=== PATIENT | female | born 1950 | race Caucasian/White ===

== ENCOUNTER → 2018-07-20 | Outpatient (CLI) | payer BC ==
--- NOTE | 2018-07-20 17:15 | Diagnostic Imaging Report ---
INDICATION: Right knee pain. AP, oblique, and lateral views of the right knee are obtained. There is mild medial and lateral osteophyte formation with mild medial joint space narrowing. There is patellofemoral spurring and joint space narrowing. There is no acute fracture or acute bony abnormality seen. IMPRESSION: Findings in the right knee as described above with no acute-appearing bony abnormality. Dictated by: Dictated on workstation # [id number]
== END ==
LOC: RAD 16:22
PROVIDERS: ATTEND Nurse Practitioner Family
DX: M25.761 Osteophyte, right knee (principal); M17.11 Unilateral primary osteoarthritis, right knee
CPT/HCPCS: 73562

== ENCOUNTER 2018-12-28 14:46 | Emergency (ER) | payer BC ==
[~2018-12-28] VITALS: Ht 170.2 cm; Wt 95.3 kg
--- OUTSIDE RECORDS SUMMARY | 2018-12-28 14:51 | XMS REPORT | Referral Summary ---
Author Author [facility] Organization [facility] Address Unknown Phone Unavailable Encounter [facility] [id number] Date(s): 07/12/16 - 07/12/16 [facility] [address] [place], [place] [address] Discharge Diagnosis: FH: malignant neoplasm of breast Discharge Diagnosis: HX: breast cancer Discharge Disposition: 01-Home or Self Care Attending Physician: Ruth Hayden MD Admitting Physician: Ruth Hayden MD Vital Signs No data available for this section Problem List Condition Effective Dates Status Health Status Informant Appendectomy(Confirm Resolved ed) Arthritis-Osteo(Conf Active [facility]med) Depression(Confirmed Active )1 Encounter for Active orthopedic follow-up care(Confirmed) L breast Resolved mastectomy(Confirmed ) L total knee 05/14/13 Resolved arthroplasty(Confirm ed) Obesity(Confirmed) Active patient ORIF clavicle Resolved fx(Confirmed) R breast Resolved biopsy(Confirmed) 1DEPRESSIVE DISORDER, NOT ELSEWHERE CLASSIFIED Allergies, Adverse Reactions, Alerts No Known Medication Allergies Medications Cindy Oral, 0 Refill(s) Start Date: 03/05/14 Status: Ordered anastrozole mg, Oral, Daily, 0 Refill(s) Start Date: 03/05/14 Status: Ordered Calcium 600+D tabs, Oral, TID, 0 Refill(s) Start Date: 03/05/14 Status: Ordered Centrum Silver Daily, 0 Refill(s) Start Date: 03/06/14 Status: Ordered cranberry 0 Refill(s) Start Date: 03/05/14 Status: Ordered Vitamin D3 Oral, 0 Refill(s) Start Date: 03/05/14 Status: Ordered Results No data available for this section Immunizations Vaccine Date Refusal Reason tetanus/diphth/pertuss (Tdap) adult/adol 12/30/08 Procedures Procedure Date Related Diagnosis Body Site L total knee arthroplasty 2012 LFT NEEDLE LOC BRST BX 02/25/12 ORIF Clavicle fx1 2005 R breast biopsy2 2004 Appendectomy Mastectomy Left 1pins, screws, wires 2benign Social History Social History Type Response Smoking Status Never smoker Assessment and Plan Extracted from: Title: BREAST CLINIC NOTE Author: Ruth Hayedn MD Date: 07/12/16 Assessment/Plan 1.HX: breast cancer 1. The patient is a 66-year-old woman who underwent a left mastectomy in 2011 for breast cancer. She is doing well and at this time there is no sign of recurrence or new cancer based on imaging or examination. 2. The patient does have excess tissue in her left axilla. This does bother her slightly. We did discuss potential excision which could be doneas an outpatient. The patient will think about it and let me know if she would like to proceed. 3.The patient and I did discuss herfamily history and previous genetic testing in detail. She has had BRCA testing. I explained that thereis new testing availablefor additional genes other than the BRCA gene. She is certainly at risk for these additional genetic abnormalitiessecondary to her strong family history. I would recommend that she obtain additional informationfrom our genetic counseling serviceat [facility]. A pamphlet was given to heralong withthe phone number to call and make an appointment if she is interested. 4. The patient will see me back in the officein one year after her right mammogram. Ordered: Office Visit Level 4 Est 52378 2.FH: malignant neoplasm of breast Ordered: Office Visit Level 4 Est 43417
--- OUTSIDE RECORDS SUMMARY | 2018-12-28 14:51 | XMS REPORT | Referral Summary ---
Author Author [facility] Organization [facility] Address Unknown Phone Unavailable Care Team Providers Care Collar Tailor Name Role Phone Jigna Hodge PCP Encounter [facility] [id number] Date(s): 06/02/15 - 06/02/15 [facility] [address] [place], [place] [address] Discharge Diagnosis: Personal history of breast cancer Discharge Diagnosis: Abnormal mammogram Discharge Disposition: 01-Home or Self Care Attending [...] Vitamin D3 Oral, 0 Refill(s) Start Date: 7/22/14 Status: Ordered Results No data available for this section Immunizations Vaccine Date Refusal Reason tetanus/diphth/pertuss (Tdap) adult/adol 08/13/08 Procedures Procedure Date Related Diagnosis Body Site L total knee arthroplasty 2012 LFT NEEDLE LOC BRST BX 02/25/12 ORIF Clavicle fx1 2006 R breast biopsy2 2004 Appendectomy Mastectomy Left 1pins, screws, wires 2benign Social History Social History Type Response Smoking Status Never smoker Assessment and Plan Extracted from: Title: Ambulatory Patient Education Author: Ruth Hayden MD Date: [facility] Breast Cancer Survivor Follow-up Breast cancer treatment aims to get rid of all cancer cells, but sometimes a few remain in the body. These cells can then grow and cause the cancer to return (recur). If this happens, the goal is to find the cancer as soon as possible. Cancer can recur just a few months after treatment or years later. Most cases of recurrent breast cancer develop 3 5 years after treatment. WILL MY CANCER RETURN? There is no way to know if your breast cancer will return. However, your chance of developing recurrent breast cancer is greater if you had: Breast cancer before 60 years of age. Breast cancer that involved the lymph nodes. A tumor that was bigger than 2 inches (5 cm). A high-grade tumor. These are tumors that grow more quickly than other types of tumors. A close tumor margin. This means the space between the tumor and normal, noncancerous cells was small. Inflammatory breast cancer. HER2 cancer. Surgery to remove the tumor but not the entire breast (lumpectomy) and no radiation therapy. SYMPTOMS OF RECURRENT BREAST CANCER Examine your breasts every month. You may find it helpful to do this on the same day each month and maite your calendar as a reminder. Let your health care provider know immediately if you have any signs or symptoms of recurrent breast cancer. Signs and symptoms of recurrent breast cancer vary. It depends on where the cancer is and how the original cancer was treated. Symptoms of a cancer that comes back in the same spot (local recurrence) after a lumpectomy, or a recurrence in the opposite breast may include: A new lump or thickening in the breast. A change in the way the skin of the breast looks (such as a rash, dimpling, or wrinkling). Redness or swelling of the breast. Changes in the nipple (such as it may be red, puckered, swollen, or leaking fluid). Symptoms of a recurrence after breast removal surgery (mastectomy) may include: A lump or thickening under the skin. A thickening around the mastectomy scar. Symptoms of a cancer that comes back in the lymph nodes near the breast ( regional recurrence) may include: A lump under the arm or above the collarbone. Swelling of the arm. Pain in the arm, shoulder, or chest. Numbness in the hand or arm. Symptoms of cancer that comes back in an area of the body far away from the original cancer site (distant recurrence) may include: A cough that does not go away. Trouble breathing or shortness of breath. Pain in the bones or the chest. This is pain that lasts or does not improve with rest and medicine. Headaches. Sudden vision problems. Dizziness. Nausea or vomiting. Weight loss. Persistent abdominal pain. Changes in bowel movements or blood in the stool. Yellowing of the skin or eyes (jaundice). Blood in the urine or bloody vaginal discharge. FOLLOWING UP WITH YOUR HEALTH CARE PROVIDER Decide who your primary health care provider will be. Most people continue to see their cancer specialist (oncologist) every 3 6 months for the first year after cancer treatment. At some point, you may want to go back to seeing a family health care provider instead of your oncologist for regular checkups. Many women do this about 1 year after getting a breast cancer diagnosis. You would still need to see your oncologist as directed. You should also: Keep a schedule of appointments for the tests and exams you need (including physical exams, breast exams, and exams of the lymph nodes). For the first 3 years after being treated for breast cancer, see your health care provider every 3 6 months. In the fourth and fifth years after being treated for breast cancer, see your health care provider every 6 12 months. From 5 years on after your breast cancer treatment, see your health care provider at least once a year. Continue to have regular breast X-rays (mammograms), even if you had a mastectomy. Get a mammogram 1 year after the mammogram that first detected breast cancer. Get a mammogram every 6 12 months after that or as often as your health care provider suggests. Have a pelvic exam every year or as often as your health care provider suggests. Some tests are not recommended for routine screening. Someone recovering from breast cancer does not need to have these tests if there are no problems. The tests have risks, such as radiation exposure, and can be costly. The risks of these tests are thought to be greater than the benefits: Blood tests. Chest X-rays. Bone scans. Liver ultrasound. CT. MRI. Positron emission tomography (PET scan). SEEK MEDICAL CARE IF: You have any signs or symptoms of recurrent breast cancer. You are taking a medicine prescribed to treat your breast cancer and have vaginal bleeding. You discover new lumps in your breast. You have headaches, bone, chest, or abdominal pain. You have shortness of breath. You have a cough that does not go away. You have discharge from your nipple. You have a rash on your breast. SEEK IMMEDIATE MEDICAL CARE IF: You have trouble breathing. You have chest pain. Document Released: 03/29/2012 Document Revised: 08/06/2014 Document Reviewed: [facility] Patient Information 2015 [employer]. This information is not intended to replace advice given to you by your health care provider. Make sure you discuss any questions you have with your health care provider. No follow up information was provided. Extracted from: Title: BREAST CLINIC NOTE Author: Ruth Hayden MD Date: 06/02/15 Assessment/Plan 1.Personal history of breast cancer 1. The patient is a 65-year-old woman who presents back to the office in follow-up of herleft breast cancer treated by mastectomy. At this time there is no sign of recurrence. 2. I do not feel anything on examination ofthe right breast, but radiology did seean architectural distortion and recommended a 6 month follow- up. We will schedule that for her. If the mammogram is unchanged at that time she will not need to see me in the office. I will then see her back in one year afterher yearly right diagnostic mammogram. Ordered: Office Visit Level 3 Est [id number]
--- OUTSIDE RECORDS SUMMARY | 2018-12-28 14:51 | XMS REPORT | Referral Summary ---
Author Author [facility] Organization [facility] Address Unknown Phone Unavailable Care Team Providers Care Signing Teacher Name Role Phone Jigna Hodge PCP Encounter [facility] [id number] Date(s): 06/02/15 - 06/02/15 [facility] [address] [place], [place] [address] Discharge Diagnosis: Personal history of [...] Patient Education Author: Ruth Hayden MD Date: [facility] Breast Cancer Survivor Follow-up Breast cancer [...] Released: 03/29/2012 Document Revised: 08/06/2014 Document Reviewed: [facility] Patient Information 2015 [employer]. This information is not intended to replace [...] mammogram. Ordered: Office Visit Level 3 Est 46845
--- OUTSIDE RECORDS SUMMARY | 2018-12-28 14:52 | XMS REPORT | CCD ---
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 Name Role Phone PP Unavailable CCM Unavailable Summary Purpose Interface Exchange Insurance Providers Payer name Policy type / Coverage type Covered democrat ID Effective Begin Date Effective End Date [facility] [id number] Unknown Unknown Family history Mother Diagnosis Age At Onset Breast cancer Unknown Osteoporosis Unknown Heart Attack Unknown Arthritis Unknown Father Diagnosis Age At Onset Heart Attack Unknown Diabetes mellitus Type 2 Unknown Hyperlipidemia Unknown Sister Diagnosis Age At Onset Depression Unknown Breast cancer Unknown Social History Social History Element Codes Description Effective Dates Marital status Unknown 01/20/[address]: 279097495 Never smoker 01/20/2017 Alcohol history Unknown occasionally drinks alcohol 01/20/2017 Allergies, Adverse Reactions, Alerts Allergies, Adverse Reactions, Alerts data not found Past Medical History Illness Codes Condition Status Onset Date Resolved Date Other acute sinusitis ICD-9: 461.8 ICD-10: J01.80 Active 01/20/2017 Unknown Other allergic rhinitis ICD-9: 477.8 ICD-10: J30.89 Active 01/20/2017 Unknown Allergies Unknown Active 08/23/2016 Unknown Hyperlipidemia Unknown Active 08/23/2016 Unknown Allergic rhinitis due to pollen ICD-9: 477.0 ICD-10: J30.1 Active 08/22/2016 Unknown Encounter for general adult medical examination with abnormal findings ICD-9: V70.0 ICD-10: Z00.01 Active 08/22/2016 Unknown Other cysts of oral region, not elsewhere classified ICD-9: 528.4 ICD-10: K09.8 Active 08/22/2016 Unknown Problems Condition Codes Effective Dates Condition Status Other acute sinusitis ICD-9: 461.8 ICD-10: J01.80 01/20/2017 Active Other allergic rhinitis ICD-9: 477.8 ICD-10: J30.89 01/20/2017 Active Allergies Unknown 08/23/2016 Active Hyperlipidemia Unknown 08/23/2016 Active Allergic rhinitis due to pollen ICD-9: 477.0 ICD-10: J30.1 08/22/2016 Active Encounter for general adult medical examination with abnormal findings ICD-9: V70.0 ICD-10: Z00.01 08/22/2016 Active Other cysts of oral region, not elsewhere classified ICD-9: 528.4 ICD-10: K09.8 08/22/2016 Active Medications Medication Codes Instructions Start Date Stop Date Status Fill Instructions Zithromax 250 mg tablet RxNorm: 567416 1 Tablet(s) PO daily 03/2017 No Stop Date Active clindamycin 150 mg capsule RxNorm: 107723 1 Capsule(s) PO TID 08/23/2016 08/29/2016 Inactive Arimidex 1 mg tablet RxNorm: 842808 1 Tablet(s) PO daily No Start Date Active cranberry 1,000 mg capsule RxNorm: 185201 1 Capsule(s) PO daily No Start Date Active Vitamin D2 1,000 unit capsule RxNorm: 950493 1 Capsule(s) PO daily No Start Date Active calcium 100 mg capsule RxNorm: 1 Capsule(s) PO daily No Start Date Active Mikki 180 mg tablet RxNorm: 286073 1 Tablet(s) PO daily No Start Date Active Centrum Silver Ultra Women's oral RxNorm: 81298 oral No Start Date Active Medication Administered No Medication Administered data Immunizations No Immunization data Assessments Condition Codes Effective Dates Other acute sinusitis ICD-10: J01.80 ICD-9: 461.8 01/20/2017 Other allergic rhinitis ICD-10: J30.89 ICD-9: 477.8 01/20/2017 Other cysts of oral region, not elsewhere classified ICD-10 : K09.8 ICD-9: 528.4 08/23/2016 Allergic rhinitis due to pollen ICD-10: J30.1 ICD-9: 477.0 08/23/2016 Encounter for general adult medical examination with abnormal findings ICD-10: Z00.01 ICD-9: V70.0 08/23/2016 Reason For Visit Reason For Visit Effective Dates Notes sinus congestion 01/20/2017 facial pain 08/23/2016 Results No Results data Review of Systems System Result Effective Dates Constitutional recent illness 01/20/2017 Constitutional chills 01/20/2017 Constitutional No fever 01/20/2017 Constitutional No diaphoresis 01/20/2017 Eyes No eye erythema 01/20/2017 Ears/Nose/Throat/Neck nasal allergies 03/2017 Ears/Nose/Throat/Neck nasal discharge 03/2017 Ears/Nose/Throat/Neck otalgia 01/20/2017 Ears/Nose/Throat/Neck postnasal drip 03/2017 Ears/Nose/Throat/Neck sinus congestion Ears/Nose/Throat/Neck No sore throat 03/2017 Cardiovascular No chest pain/pressure 03/2017 Cardiovascular No dyspnea 01/20/2017 Respiratory No cough 01/20/2017 Respiratory No dyspnea 01/20/2017 Respiratory No chest congestion 2016 Gastrointestinal No abdominal pain 2016 Gastrointestinal No constipation 2016 Gastrointestinal No diarrhea 01/20/2017 Gastrointestinal No vomiting 01/20/2017 Gastrointestinal No nausea 01/20/2017 Musculoskeletal No joint complaint 2016 Dermatologic No rash 01/20/2017 Neurologic No alteration of consciousness 01/20/2017 Neurologic No mental status change 2016 Constitutional No recent illness 2016 Constitutional No anorexia 08/23/2016 Constitutional No night sweats 2016 Constitutional No chills 08/23/2016 Constitutional No diaphoresis 08/23/2016 Constitutional No fatigue 08/23/2016 Constitutional No fever 08/23/2016 Constitutional No insomnia 08/23/2016 Constitutional No malaise 08/23/2016 Constitutional No weight loss 08/23/2016 Constitutional No weight gain 08/23/2016 Eyes No eye discharge 08/23/2016 Eyes No eye erythema 08/23/2016 Ears/Nose/Throat/Neck No dizziness 2016 Ears/Nose/Throat/Neck facial pain 2016 Ears/Nose/Throat/Neck headache 2016 Ears/Nose/Throat/Neck nasal allergies 04/2017 Ears/Nose/Throat/Neck No otalgia 2016 Ears/Nose/Throat/Neck oral pain 2016 Cardiovascular No chest pain/pressure 04/2017 Respiratory No productive sputum 2016 Respiratory cough 08/23/2016 Gastrointestinal No abdominal pain 2016 Gastrointestinal No constipation 2016 Gastrointestinal No diarrhea 08/23/2016 Genitourinary/Nephrology No dysuria 08/23 Musculoskeletal No joint complaint 2016 Dermatologic No rash 08/23/2016 Cardiovascular No arrhythmia 08/23/2016 Neurologic No alteration of consciousness 08/23/2016 Psychiatric No anxiety 08/23/2016 Psychiatric No depression 08/23/2016 Endocrine No dry or coarse skin 2016 Hematologic/Lymphatic No abnormal ecchymoses 08/23/2016 Physical Exam Exam Name System Name Item Name Status Result Effective Dates Notes Full Exam - ENT Constitutional general appearance Overall: well nourished 01/20/2017 None Full Exam - ENT Constitutional general appearance Overall: well developed 01/20/2017 None Full Exam - ENT Constitutional general appearance Overall: in no acute distress 01/20/2017 None Full Exam - ENT Ears/Nose/Throat otoscopic exam Overall: external auditory canals normal 01/20/2017 None Full Exam - ENT Ears/Nose/Throat otoscopic exam Left tympanic membrane: air -fluid level 01/20/2017 None Full Exam - ENT Ears/Nose/Throat otoscopic exam Overall: tympanic membranes normal 01/20/2017 None Full Exam - ENT Ears/Nose/Throat lips/ teeth/gingiva Overall: benign lips 01/20/2017 None Full Exam - ENT Ears/Nose/Throat oropharynx Overall: oral mucosa clear 01/20/2017 None Full Exam - ENT Ears/Nose/Throat oropharynx Posterior Pharynx: clear post nasal drainage 01/20/2017 None Full Exam - ENT Ears/Nose/Throat oropharynx Posterior Pharynx: erythema 01/20/2017 None Full Exam - ENT Face and Head palpation Left maxillary sinus: tender 01/20/2017 None Full Exam - ENT Face and Head palpation Right maxillary sinus: tender 01/20/2017 None Full Exam - ENT Face and Head palpation Left frontal sinus: tender 01/20/2017 None Full Exam - ENT Face and Head palpation Right frontal sinus: tender 01/20/2017 None Full Exam - ENT Respiratory auscultation Overall: breath sounds clear bilaterally 01/20/2017 None Full Exam - ENT Respiratory inspection Overall: no retractions 01/20/2017 None Full Exam - ENT Respiratory inspection Overall: normal rate 03/2017 None Full Exam - ENT Cardiovascular auscultation of heart Overall: regular rate 01/20/2017 None Full Exam - ENT Cardiovascular auscultation of heart Overall: normal heart sounds 01/20/2017 None Full Exam - ENT Lymphatic palpation of lymph nodes Overall: anterior cervical chain benign 01/20/2017 None Full Exam - ENT Lymphatic palpation of lymph nodes Overall: posterior cervical chain benign 01/20/2017 None Full Exam - ENT Musculoskeletal gait and station Overall: normal gait 01/20/2017 None Full Exam - ENT Musculoskeletal gait and station Overall: normal station 01/20/2017 None Full Exam - ENT Musculoskeletal head and neck Overall: head atraumatic 01/20/2017 None Full Exam - ENT Neurologic mood and affect Overall: normal mood 01/20/2017 None Full Exam - ENT Neurologic mood and affect Overall: normal affect 01/20/2017 None Full Exam - ENT Neurologic orientation Overall: oriented to person, place and time 01/20/2017 None Full Exam - ENT Neurologic cranial nerves /coordination Overall: cranial nerves 2- 12 grossly intact 01/20/2017 None Full Exam - General 1994 Constitutional general appearance Overall: in no acute distress 08/23/2016 None Full Exam - General 1994 Constitutional general appearance Overall: well developed 08/23/2016 None Full Exam - General 1994 Constitutional general appearance Overall: well nourished 08/23/2016 None Full Exam - General 1994 Psychiatric orientation/consciousness Overall: oriented to person, place and time 08/23/2016 None Full Exam - General 1994 Neurologic cranial nerves Overall: crainial nerves 2 - 12 grossly intact 08/23/2016 None Full Exam - General 1994 Integument inspection of skin Overall: few scattered moles, no gross abnormalities 08/23/2016 None Full Exam - General 1994 Musculoskeletal gait and station Overall: normal gait 08/23/2016 None Full Exam - General 1994 Musculoskeletal gait and station Overall: normal station 08/23/2016 None Full Exam - General 1994 Lymphatic neck nodes Overall: anterior cervical chain benign 08/23/2016 None Full Exam - General 1994 Lymphatic neck nodes Overall: posterior cervical chain benign 08/23/2016 None Full Exam - General 1994 Abdomen abdominal exam Overall: no tenderness 08/23/2016 None Full Exam - General 1994 Abdomen abdominal exam Overall: normal bowel sounds 08/23/2016 None Full Exam - General 1994 Cardiovascular auscultation of heart Overall: regular rate 08/23/2016 None Full Exam - General 1994 Cardiovascular auscultation of heart Overall: normal heart sounds 08/23/2016 None Full Exam - General 1994 Cardiovascular auscultation of heart Overall: no murmurs 08/23/2016 None Full Exam - General 1994 Respiratory auscultation Overall: breath sounds clear bilaterally 08/23/2016 None Full Exam - General 1994 Respiratory respiratory effort/rhythm Overall: normal rate 08/23/2016 None Full Exam - General 1994 Respiratory respiratory effort/rhythm Overall: no retractions 08/23/2016 None Full Exam - General 1994 Eyes conjunctiva /eyelids Overall: conjunctiva clear 08/23/2016 None Full Exam - General 1994 Eyes pupils and irises Overall: pupils equal, round, reactive to light and accomodation 08/23/2016 None Full Exam - General 1994 Ears/Nose/Throat otoscopic exam Overall: external auditory canals clear 08/23/2016 None Full Exam - General 1994 Ears/Nose/Throat otoscopic exam Overall: tympanic membranes clear 08/23/2016 None Full Exam - General 1994 Ears/Nose/Throat lips/teeth/gingiva Teeth: partially edentulous 08/23/2016 None Full Exam - General 1994 Ears/Nose/Throat oral cavity/pharynx/larynx Mass: left 08/23/2016 None Full Exam - General 1994 Ears/Nose/Throat oral cavity/pharynx/larynx Mass: buccal mucosa 08/23/2016 cyst-mild tenderness Procedures No Procedures data Vital Signs Date Vital 01/20/2017 Blood Pressure 1: 144/88 Code : 8480-6 BMI: 35.0 Code : 38646-6 Heart Rate 1 : 76 bpm Height: 5'6" SpO2: 96% Weight: 220 lbs 08/23/2016 Blood Pressure 1: 140/66 Code : 8480-6 BMI: 35.9 Code : 61412-3 Heart Rate 1 : 68 bpm Height: 5'6" SpO2: 97% Weight: 226 lbs Functional Status No Functional Status data History of Present Illness Symptom Name Status Result Effective Date Notes sinus congestion Location frontal sinuses 01/20/2017 None sinus congestion Quality chronic 01/20/2017 None sinus congestion Onset and Resolution gradual in onset 01/20/2017 None sinus congestion Pertinent Findings cough 01/20/2017 None sinus congestion Pertinent Findings decreased energy level 01/20/2017 None sinus congestion Pertinent Findings facial pain 01/20/2017 None sinus congestion Pertinent Findings Denies fever 01/20/2017 None sinus congestion Onset of Symptom 3 weeks ago 01/20/2017 None facial pain Location left cheek 08/23/2016 None facial pain Quality acute 08/23/2016 None facial pain Onset and Resolution ongoing 08/23/2016 None facial pain Onset of Symptom 5 days ago 08/23/2016 None facial pain Limitation on Activities does not limit activities 08/23/2016 None facial pain Frequency of Episodes decreasing 08/23/2016 states it is getting smaller facial pain Triggers no known associated factors 08/23/2016 None Advance Directives No Advance Directive data Encounters Encounter Performer Location Codes Date 15537 EST. PATIENT, LEVEL IV Diagnosis: Other allergic rhinitis[ICD10: J30.89] Diagnosis: Other acute sinusitis[ICD10: J01.80] [facility] CPT-4: 26173 01/20/2017 ([id number]) OFFICE VISIT, NEW - LEVEL 3 Diagnosis: Allergic rhinitis due to pollen[ICD10: J30.1] Diagnosis: Other cysts of oral region, not elsewhere classified[ICD10: K09.8] Diagnosis: Encounter for general adult medical examination with abnormal findings[ICD10: Z00.01] [facility] CPT-4: 30302 08/23/2016 Plan of Care Planned Activity Notes Codes Status Date Visit Plan: Allergies - chronic - Pt is to stop mikki and start zyrtec. Pt has been counseled as to the appropriate use of the medication. Pt to call if allergy symptoms are not controlled with the medication.If using nasal spray, instructions as follows: Nasal spray- use twice daily, one spray per nostril twice daily, after 30 minutes, rinse out nose with saline spray.. Use opposite hand per nostril to spray in the nasal steroid allergy spray.Sinusitis - Pt has acute infection - pain in face, maxillary region, Pt informed to use decongestant, RX given to patient, sinus rinses also recommended. Call if symptoms do not show improvement. 01/20/2017 Appointment: Jodie Mayers WPtel: [address] [place], [place] [phone] (15 min) Moderate 01/20/2017 Patient Education: Patient Medication Summary Completed 01/20/2017 Patient Education: Obesity Completed 01/20/2017 Visit Plan: Aitjmpedq-klznkfkloi-fijkjd mikki dailyCyst left buccal mucosa- start abx-recommend dental appt to r/o tooth abscess-plan for imaging or referral if cyst does not resolve with round of oral abxHistory of breast cancer -on arimidex-mammograms in June Due for fasting labs-order sent to [facility] Recommend colonoscopy 08/23/2016 [facility]ment: [facility] [phone] [phone] New Patient 08/23/2016 Patient Education: Patient Medication Summary Completed 08/23/2016 Patient Education: Obesity Completed 08/23/2016 Care Plan: Comp Metabolic patient will come fasting Cancelled 08/23/2016 Care Plan: Cbc With Differential Cancelled 08/23/2016 Care Plan: Tsh Cancelled 08/23/2016 Care Plan: Lipid Cancelled 08/23/2016 Instructions Comment Fasting labs . Yckqfqxqw-ywwhevdpix-mozdmo mikki daily Cyst left buccal mucosa-start abx-recommend dental appt to r/o tooth abscess- plan for imaging or referral if cyst does not resolve with round of oral abx History of breast cancer-on arimidex-mammograms in June Due for fasting labs-order sent to [facility] Recommend colonoscopy . Allergies - chronic - Pt is to stop mikki and start zyrtec. Pt has been counseled as to the appropriate use of the medication. Pt to call if allergy symptoms are not controlled with the medication. If using nasal spray, instructions as follows: Nasal spray- use twice daily, one spray per nostril twice daily, after 30 minutes, rinse out nose with saline spray.. Use opposite hand per nostril to spray in the nasal steroid allergy spray. Sinusitis - Pt has acute infection - pain in face, maxillary region, Pt informed to use decongestant, RX given to patient, sinus rinses also recommended. Call if symptoms do not show improvement.
--- OUTSIDE RECORDS SUMMARY | 2018-12-28 14:52 | XMS REPORT | CCD ---
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 Operator Name Role Phone PP Unavailable CCM Unavailable Summary Purpose Interface Exchange Insurance Providers Payer name Policy type / Coverage type Covered republican ID Effective Begin Date Effective End Date [facility] [id number] Unknown Unknown Family history Mother Diagnosis Age At Onset Breast cancer Unknown Osteoporosis Unknown Heart Attack Unknown Arthritis Unknown Father Diagnosis Age At Onset Heart Attack Unknown Diabetes mellitus Type 2 Unknown Hyperlipidemia Unknown Sister Diagnosis Age At Onset Depression Unknown Breast cancer Unknown Social History Social History Element Codes Description Effective Dates Marital status Unknown 01/20/[address]: 470808610 Never smoker 01/20/2017 Alcohol history Unknown occasionally drinks alcohol 01/20/2017 Allergies, Adverse Reactions, Alerts Substance Reaction Codes Entered Date Inactivated Date Status * NO KNOWN DRUG ALLERGIES Unknown 08/23/2016 No Inactive Date Active Past Medical History Illness Codes Condition Status Onset Date Resolved Date Pain in right knee ICD -9: 719.46 ICD-10: M25.561 Active 07/20/2018 Unknown Other specified disorders of breast ICD-9: 611.89 ICD-10: N64.89 Active 07/14/2018 Unknown Urinary tract infection, site not specified ICD-9: 599.0 ICD-10: N39.0 Active 05/16/2017 Unknown Other acute sinusitis ICD-9: 461.8 ICD-10: J01.80 [...] Problems Condition Codes Effective Dates Condition Status Pain in right knee ICD -9: 719.46 ICD-10: M25.561 07/20/2018 Active Other specified disorders of breast ICD-9: 611.89 ICD-10: N64.89 07/14/2018 Active Urinary tract infection, site not specified ICD-9: 599.0 ICD-10: N39.0 05/16/2017 Active Other acute sinusitis ICD-9: 461.8 ICD-10: J01.80 [...] Start Date Stop Date Status Fill Instructions prednisone 20 mg tablet RxNorm: 352004 2 Tablet(s) PO daily 01/201807/24/2018 Active Keflex 500 mg capsule RxNorm: 958697 1 Capsule(s) PO TID 201605/22/2017 Inactive Zithromax 250 mg tablet RxNorm: 154425 1 Tablet(s) PO daily 03/2017 No Stop Date Active clindamycin 150 mg capsule RxNorm: 279824 1 Capsule(s) PO TID 08/23/2016 08/29/2016 Inactive Arimidex 1 mg tablet RxNorm: 961196 1 Tablet(s) PO daily No Start Date Active cranberry 1,000 mg capsule RxNorm: 762287 1 Capsule(s) PO daily No Start Date Active Vitamin D2 1,000 unit capsule RxNorm: 084127 1 Capsule(s) PO daily No Start Date Active calcium 100 mg capsule RxNorm: 1 Capsule(s) PO daily No Start Date Active Mikki 180 mg tablet RxNorm: 958573 1 Tablet(s) PO daily No Start Date Active Centrum Silver Ultra Women's oral RxNorm: 13970 oral No Start Date Active Medication Administered No Medication Administered data Immunizations No Immunization data Assessments Condition Codes Effective Dates Pain in right knee ICD-10: M25.561 ICD-9: 719.46 07/20/2018 Other specified disorders of breast ICD-10: N64.89 ICD-9: 611.89 07/14/2018 Urinary tract infection, site not specified ICD-10: N39.0 ICD-9: 599.0 05/16/2017 Other acute sinusitis ICD-10: J01.80 ICD-9: 461.8 01/20/2017 Other allergic rhinitis ICD-10: J30.89 ICD-9: 477.8 01/20/2017 Other cysts of oral region, not elsewhere classified ICD-10 : K09.8 ICD-9: 528.4 08/23/2016 Allergic rhinitis due to pollen ICD-10: J30.1 ICD-9: 477.0 08/23/2016 Encounter for general adult medical examination with abnormal findings ICD-10: Z00.01 ICD-9: V70.0 08/23/2016 Reason For Visit Reason For Visit Effective Dates Notes knee pain 07/20/2018 sinus congestion 01/20/2017 facial pain 08/23/2016 Results Observation Observation Code Item Item Code Result Date Culture Urine [id number] URINE CULTURE SEE NOTES 05/19/2017 Culture Urine [id number] Continued Results 05/19/2017 Urine Culture Ucult Complete >100,000 col/ml aerobic growth sent to ref lab 05/17/2017 Review of Systems System Result Effective Dates Constitutional No recent illness 2017 Constitutional No chills 07/20/2018 Constitutional No fever 07/20/2018 Eyes No eye erythema 07/20/2018 Ears/Nose/Throat/Neck No nasal discharge 07/20/2018 Cardiovascular No chest pain/pressure 01/2018 Cardiovascular No dyspnea 07/20/2018 Respiratory No cough 07/20/2018 Respiratory No dyspnea 07/20/2018 Musculoskeletal joint complaint 2017 Neurologic No alteration of consciousness 07/20/2018 Neurologic No mental status change 2017 Constitutional recent illness 01/20/2017 Constitutional chills 01/20/2017 [...] Result Effective Dates Notes Full Exam - Orthopedics Constitutional general appearance Overall: well nourished 07/20/2018 None Full Exam - Orthopedics Constitutional general appearance Overall: well developed 07/20/2018 None Full Exam - Orthopedics Constitutional general appearance Overall: in no acute distress 07/20/2018 None Full Exam - Orthopedics Eyes conjunctiva/ eyelids Overall: conjunctiva clear 07/20/2018 None Full Exam - Orthopedics Eyes conjunctiva/ eyelids Overall: eyelids normal 07/20/2018 None Full Exam - Orthopedics Ears/Nose/Throat lips/teeth/gingiva Overall: benign lips 07/20/2018 None Full Exam - Orthopedics Ears/Nose/Throat oral cavity/pharynx/larynx Overall: oral mucosa clear 07/20/2018 None Full Exam - Orthopedics Respiratory respiratory effort/rhythm Overall: no retractions 07/20/2018 None Full Exam - Orthopedics Respiratory respiratory effort/rhythm Overall: normal rate 07/20/2018 None Full Exam - Orthopedics Psychiatric orientation/consciousness Overall: oriented to person, place and time 07/20/2018 None Full Exam - Orthopedics Psychiatric mood and affect Overall: normal mood and affect 07/20/2018 None Full Exam - Orthopedics Psychiatric appearance Overall: well-groomed, good eye contact 07/20/2018 None Full Exam - Orthopedics MS: head/neck insp & palp - H/N Overall: head atraumatic 07/20/2018 None Full Exam - Orthopedics MS: right lower extremity insp & palp - RLE Knee: joint redness 07/20/2018 None Full Exam - Orthopedics MS: right lower extremity insp & palp - RLE Knee: crepitus 07/20/2018 None Full Exam - Orthopedics MS: right lower extremity range of motion - RLE Knee: crepitus 07/20/2018 None Full Exam - Orthopedics MS: right lower extremity range of motion - RLE Knee: pain with flexion 07/20/2018 None Full Exam - Orthopedics MS: right lower extremity range of motion - RLE Knee: pain with extension 07/20/2018 None Full Exam - ENT Constitutional general [...] Mass: buccal mucosa 08/23/2016 cyst-mild tenderness Procedures Procedure Codes Date URINALYSIS NONAUTO W/O SCOPE CPT-4: 12990 05/16/2017 Vital Signs Date Vital 07/20/2018 Blood Pressure 1: 146/84 Code : 8480-6 BMI: 35.9 Code : 64297-8 Heart Rate 1 : 94 bpm Height: 5'6" SpO2: 98% Weight: 226 lbs 01/20/2017 Blood Pressure 1: 144/88 Code : 8480-6 BMI: 35.0 Code : 99819-3 Heart Rate 1 : 76 bpm Height: 5'6" SpO2: 96% Weight: 220 lbs 08/23/2016 Blood Pressure 1: 140/66 Code : 8480-6 BMI: 35.9 Code : 19382-0 Heart Rate 1 : 68 bpm Height: 5'6" SpO2: 97% Weight: 226 lbs Functional Status No Functional Status data History of Present Illness Symptom Name Status Result Effective Date Notes Location on the right 07/20/2018 None Quality catching 01/2018 None Quality tenderness None Quality constant 01/2018 None Onset and Resolution sudden in onset 07/20/2018 None Onset of Symptom 1 months ago 07/20/2018 None Frequency of Episodes daily 07/20/2018 None sinus congestion Location frontal sinuses 01/20/2017 None [...] data Encounters Encounter Performer Location Codes Date [address]441 EST. PATIENT, LEVEL III Diagnosis: Pain in right knee[ICD10: M25.561] [facility] CPT-4: 94185 07/20/2018 03576 EST. PATIENT, LEVEL IV Diagnosis: Other allergic rhinitis[ICD10: J30.89] Diagnosis: Other acute sinusitis[ICD10: J01.80] [facility] CPT-4: 98624 01/20/2017 ([id number]) OFFICE VISIT, NEW - LEVEL 3 Diagnosis: Allergic rhinitis due to pollen[ICD10: J30.1] Diagnosis: Other cysts of oral region, not elsewhere classified[ICD10: K09.8] Diagnosis: Encounter for general adult medical examination with abnormal findings[ICD10: Z00.01] [facility] CPT-4: 30647 08/23/2016 Plan of Care Planned Activity Notes Codes Status Date Visit Plan: Right knee pain - edema - The pt is to use prn antiinflammatories to manage acute pain. The patient is to call the office if the pain is worsening or does not improve. 07/20/2018 Appointment: Jodei Mayers WPtel: [address] [place], [place] [address] (15 min) Moderate 07/20/2018 Patient Education: Patient Medication Summary Completed 07/20/2018 Care Plan: X-RAY EXAM OF KNEE 3 LOINC : 89207-2 Pending 07/20/2018 Patient Education: Patient Medication Summary Completed 07/14/2018 Appointment: Nurse Visit 05/16/2017 Patient Education: Patient Medication Summary Completed 05/16/2017 Visit Plan: Allergies - chronic - Pt [...] show improvement. 01/20/2017 Appointment: [facility] ([facility] Moderate 01/20/2017 Patient Education: Patient Medication Summary Completed 01/20/2017 Patient Education: Obesity Completed 01/20/2017 Visit Plan: Fxgjaybcy-ecefinscqa-yfcojf mikki daily Cyst left buccal mucosa-start abx-recommend dental appt to r/o tooth abscess-plan for imaging or referral if cyst does not resolve with round of oral abx History of breast cancer-on arimidex-mammograms in June Due for fasting labs-order sent to [facility] Recommend colonoscopy 08/23/2016 App[facility]ment: [facility] [phone] [facility] New Patient 08/23/2016 Patient Education: Patient Medication Summary Completed 08/23/2016 Patient Education: Obesity Completed 08/23/2016 Care Plan: Comp Metabolic patient will come fasting Cancelled 08/23/2016 Care Plan: Cbc With Differential Cancelled 08/23/2016 Care Plan: Tsh Cancelled 08/23/2016 Care Plan: Lipid Cancelled 08/23/2016 Instructions Comment Fasting labs . Bigdnytxe-fymtxqoslm-xmjnib mikki daily Cyst left buccal mucosa-start abx-recommend dental appt to r/o tooth abscess- plan for imaging or referral if cyst does not resolve with round of oral abx History of breast cancer-on arimidex-mammograms in June for fasting labs-order sent to [facility] [place] labs Recommend colonoscopy steroid for a few days x-ray of the knee wrap it and ice it if it is not getting better we can get an MRI or refer to Ortho . Right knee pain - edema - The pt is to use prn antiinflammatories to manage acute pain. The patient is to call the office if the pain is worsening or does not improve. . Allergies - chronic - Pt is [...]
--- OUTSIDE RECORDS SUMMARY | 2018-12-28 14:52 | XMS REPORT | CCD ---
Author Author Ama Sanchez MD, [facility] Address [address] [place] [address] Phone Care Team Providers Care Head Worker Name Role Phone PP Unavailable CCM Unavailable Summary Purpose Interface Exchange Insurance Providers Payer name Policy type / Coverage type Covered libertarian ID Effective Begin Date Effective End Date [facility] [id number] Unknown Unknown Family history Mother Diagnosis Age At Onset Breast cancer Unknown Osteoporosis Unknown Heart Attack Unknown Arthritis Unknown Father Diagnosis Age At Onset Heart Attack Unknown Diabetes mellitus Type 2 Unknown Hyperlipidemia Unknown Sister Diagnosis Age At Onset Depression Unknown Breast cancer Unknown Social History Social History Element Codes Description Effective Dates Marital status Unknown 01/20/[address]: 086327695 Never smoker 01/20/2017 Alcohol history Unknown occasionally [...] Fill Instructions Zithromax 250 mg tablet RxNorm: 800041 1 Tablet(s) PO daily 03/2017 No Stop Date Active clindamycin 150 mg capsule RxNorm: 459543 1 Capsule(s) PO TID 08/23/2016 08/29/2016 Inactive Arimidex 1 mg tablet RxNorm: 770149 1 Tablet(s) PO daily No Start Date Active cranberry 1,000 mg capsule RxNorm: 373388 1 Capsule(s) PO daily No Start Date Active Vitamin D2 1,000 unit capsule RxNorm: 412266 1 Capsule(s) PO daily No Start Date Active calcium 100 mg capsule RxNorm: 1 Capsule(s) PO daily No Start Date Active Mikki 180 mg tablet RxNorm: 721598 1 Tablet(s) PO daily No Start Date Active Centrum Silver Ultra Women's oral RxNorm: 55306 oral No Start Date Active Medication Administered [...] Code : 8480-6 BMI: 35.0 Code : 12122-4 Heart Rate 1 : 76 bpm Height: 5'6" SpO2: 96% Weight: 220 lbs 08/23/2016 Blood Pressure 1: 140/66 Code : 8480-6 BMI: 35.9 Code : 83598-4 Heart Rate 1 : 68 bpm Height: [...] data Encounters Encounter Performer Location Codes Date 91826 EST. PATIENT, LEVEL IV Diagnosis: Other allergic rhinitis[ICD10: J30.89] Diagnosis: Other acute sinusitis[ICD10: J01.80] [facility] CPT-4: 16161 01/20/2017 ([id number]) OFFICE VISIT, NEW - LEVEL 3 Diagnosis: Allergic rhinitis due to pollen[ICD10: J30.1] Diagnosis: Other cysts of oral region, not elsewhere classified[ICD10: K09.8] Diagnosis: Encounter for general adult medical examination with abnormal findings[ICD10: Z00.01] [facility] CPT-4: 26531 08/23/2016 Plan of Care Planned Activity Notes [...] if symptoms do not show improvement. 01/20/2017 Patient Education: Patient Medication Summary Completed 01/20/2017 Patient Education: Obesity Completed 01/20/2017 Visit Plan: Runkpofhc-vdmbtwubfk-zgmyjz mikki dailyCyst left buccal mucosa- start abx-recommend dental appt to r/o tooth abscess-plan for imaging or referral if cyst does not resolve with round of oral abxHistory of breast cancer -on arimidex-mammograms in June Due for fasting labs-order sent to [facility] Recommend colonoscopy 08/23/2016 Appointment: [facility] [phone] [facility] [place] New Patient 08/23/2016 Patient Education: Patient Medication Summary Completed 08/23/2016 Patient Education: Obesity Completed 08/23/2016 Care Plan: Comp Metabolic patient will come fasting Cancelled 08/23/2016 Care Plan: Cbc With Differential Cancelled 08/23/2016 Care Plan: Tsh Cancelled 08/23/2016 Care Plan: Lipid Cancelled 08/23/2016 Instructions Comment Fasting labs . Ytordpvhv-itpfhvfsxs-rrqnrk mikki daily Cyst left buccal mucosa-start abx-recommend dental appt to r/o tooth abscess- plan for imaging or referral if cyst does not resolve with round of oral abx History of breast cancer-on arimidex-mammograms in June Due for fasting labs-order sent to [facility] Recommend colonoscopy . Allergies - chronic [...]
[2018-12-28] MEDS ORDERED: NS IV 500 ML 500 ML IV ONE (14:53)
[2018-12-28] MEDS ORDERED: FAMOTIDINE 20MG/2ML IV (PEPCID) IV STA (14:53)
[2018-12-28] MEDS ORDERED: methylPREDNISolone 125 MG (Solu-MEDROL) VIAL IV STA (14:53)
--- OUTSIDE RECORDS SUMMARY | 2018-12-28 14:53 | XMS REPORT | CCD ---
Author Author Ama Sanchez MD, [facility] Address [address] [place] [address] Phone Care Team Providers Care Tissue Coordinator Name Role Phone PP Unavailable CCM Unavailable Summary Purpose Interface Exchange Insurance Providers Payer name Policy type / Coverage type Covered republican ID Effective Begin Date Effective End Date [facility] [id number] Unknown Unknown Family history Mother Diagnosis Age At Onset Breast cancer Unknown Osteoporosis Unknown Heart Attack Unknown Arthritis Unknown Father Diagnosis Age At Onset Heart Attack Unknown Diabetes mellitus Type 2 Unknown Hyperlipidemia Unknown Sister Diagnosis Age At Onset Depression Unknown Breast cancer Unknown Social History Social History Element Codes Description Effective Dates Marital status Unknown 01/20/[address]: 807451542 Never smoker 01/20/2017 Alcohol history Unknown occasionally drinks alcohol 01/20/2017 Allergies, Adverse Reactions, Alerts Substance Reaction Codes Entered Date Inactivated Date Status * NO KNOWN DRUG ALLERGIES Unknown 08/23/2016 No Inactive Date Active Past Medical History Illness Codes Condition Status Onset Date Resolved Date Other specified disorders of breast ICD-9: 611.89 [...] Condition Codes Effective Dates Condition Status Other specified disorders of breast ICD-9: 611.89 [...] Start Date Stop Date Status Fill Instructions Keflex 500 mg capsule RxNorm: 203704 1 Capsule(s) PO TID 201605/22/2017 Inactive Zithromax 250 mg tablet RxNorm: 866878 1 Tablet(s) PO daily 03/2017 No Stop Date Active clindamycin 150 mg capsule RxNorm: 577169 1 Capsule(s) PO TID 08/23/2016 08/29/2016 Inactive Arimidex 1 mg tablet RxNorm: 119053 1 Tablet(s) PO daily No Start Date Active cranberry 1,000 mg capsule RxNorm: 845795 1 Capsule(s) PO daily No Start Date Active Vitamin D2 1,000 unit capsule RxNorm: 167825 1 Capsule(s) PO daily No Start Date Active calcium 100 mg capsule RxNorm: 1 Capsule(s) PO daily No Start Date Active Mikki 180 mg tablet RxNorm: 130809 1 Tablet(s) PO daily No Start Date Active Centrum Silver Ultra Women's oral RxNorm: 90254 oral No Start Date Active Medication Administered No Medication Administered data Immunizations No Immunization data Assessments Condition Codes Effective Dates Other specified disorders of breast ICD-10: N64.89 [...] Item Item Code Result Date Culture Urine [id number] URINE CULTURE SEE NOTES 05/19/2017 Culture Urine [id number] Continued Results 05/19/2017 Urine Culture Ucult Complete [...] intact 01/20/2017 None Full Exam - General 1995 Constitutional general appearance Overall: in no acute [...] Codes Date URINALYSIS NONAUTO W/O SCOPE CPT-4: 62317 05/16/2017 Vital Signs Date Vital 01/20/2017 Blood Pressure 1: 144/88 Code : 8480-6 BMI: 35.0 Code : 07671-5 Heart Rate 1 : 76 bpm Height: 5'6" SpO2: 96% Weight: 220 lbs 08/23/2016 Blood Pressure 1: 140/66 Code : 8480-6 BMI: 35.9 Code : 25247-9 Heart Rate 1 : 68 bpm Height: [...] data Encounters Encounter Performer Location Codes Date EST. PATIENT, LEVEL IV Diagnosis: Other allergic rhinitis[ICD10: J30.89] Diagnosis: Other acute sinusitis[ICD10: J01.80] Jodie Thurston MD, [facility] CPT-4: 99740 01/20/2017 ([id number]) OFFICE VISIT, NEW - LEVEL 3 Diagnosis: Allergic rhinitis due to pollen[ICD10: J30.1] Diagnosis: Other cysts of oral region, not elsewhere classified[ICD10: K09.8] Diagnosis: Encounter for general adult medical examination with abnormal findings[ICD10: Z00.01] Ama Thurston MD, [facility] CPT-4: 63411 08/23/2016 Plan of Care Planned Activity Notes Codes Status Date Patient Education: Patient Medication Summary Completed 07/14/2018 Care Plan: Unilateral DIAGNOSTICMAMMOGRAPHYDIGITAL LOINC : 29811-5 Pending 07/14/2018 Appointment: Nurse Visit 05/16/2017 Patient Education: [...] show improvement. 01/20/2017 Appointment: Jodie Mayers [facility]Ptel[facility] ([facility] min) Moderate 01/20/2017 Patient Education: Patient Medication Summary Completed 01/20/2017 Patient Education: Obesity Completed 01/20/2017 Visit Plan: Sbefrknfw-orhwaxicdk-pnaulp mikki daily Cyst left buccal mucosa-start abx-recommend dental appt to r/o tooth abscess-plan for imaging or referral if cyst does not resolve with round of oral abx History of breast cancer-on arimidex-mammograms in June Due for fasting labs-order sent to [facility] labs Recommend colonoscopy 08/23/2016 Appointment: Ama Sanchez WPtel: [facility] [place] [address] New Patient 08/23/2016 Patient Education: Patient Medication Summary Completed 08/23/2016 Patient Education: Obesity Completed 08/23/2016 Care Plan: Comp Metabolic patient will come fasting Cancelled 08/23/2016 Care Plan: Cbc With Differential Cancelled 08/23/2016 Care Plan: Tsh Cancelled 08/23/2016 Care Plan: Lipid Cancelled 08/23/2016 Instructions Comment Fasting labs . Fwsmccljf-bnhneerawc-ccaqty mikki daily Cyst left buccal mucosa-start abx-recommend dental appt to r/o tooth abscess- plan for imaging or referral if cyst does not resolve with round of oral abx History of breast cancer-on arimidex-mammograms in June Due for fasting labs-order sent to [facility] labs Recommend colonoscopy . Allergies - chronic [...]
--- OUTSIDE RECORDS SUMMARY | 2018-12-28 14:53 | XMS REPORT | Continuity of Care Document ---
Author Organization Unknown Address Unknown Allergies Active Description Code Type Severity Reaction Onset Reported/Identified Relationship to Patient Clinical Status Yes No Known Allergies Drug Allergy 05/09/2012 Yes No Known Drug Allergies Drug Allergy 05/09/2012 Yes No Known Food Allergies Food Allergy 05/09/2012 Yes No Known Allergies Drug Allergy N/A N/A 05/09/2013 Yes No Known Drug Allergies Drug Allergy N/A N/A 05/09/2013 Yes No Known Food Allergies Food Allergy N/A N/A 05/09/2013 Yes No Known Medication Allergies NKMA N/A N/A 05/16/2014 Medications There is no data. Problems Date Dx Coded Attending Type Code Diagnosis Diagnosed By 05/12/2012 Ruth Hayden MD Final 174.9 FEMALE BREAST CA NOS 05/09/2013 Denise Telles MD Final 715.96 OSTEOARTHOSIS NOS-LOW LE 05/09/2013 Denise Telles MD Final V72.63 PRE-PX LABORATORY EXAM 05/09/2013 Denise Telles MD Final V72.81 PREOP CV EXAM 05/14/2013 Denise Telles MD Final 311 DEPRESSIVE DISORDER NEC 05/14/2013 Denise Telles MD Final 715.36 LOC OA NOS-LOWER LEG 07/12/2016 Ruth Hayden Final Z85.3 Personal history of malignant neoplasm of breast 07/12/2016 Ruth Hayden Final Z80.3 Family history of malignant neoplasm of breast Procedures Code Description [place] [address] MAST, SIMPLE, COMPLETE Ruth Hayden MD 05/12/2012 09057 BIOPSY/REMOVAL, LYMPH NODES Ruth Hayden MD 05/12/2012 04.81 ANES INJECT PERIPH NERVE Denise Telles MD 05/14/2013 81.54 TOTAL KNEE REPLACEMENT Denise Telles MD 05/14/2013 29591 Office or other outpatient visit for the evaluation and management of an established patient, which requires at least 2 of these 3 matthew components: An expanded problem focused history; An expanded prob 07/12/2016 62166 Office or other outpatient visit for the evaluation and management of an established patient, which requires at least 2 of these 3 matthew components: A detailed history; A detailed examination; Medical d 07/12/2016 68317 MG Mammogram Diagnostic Rt w CAD 07/04/2017 Results Radiology Report from [id number] on 05/12/2012 13:05:00 Final ReportADMITTING DIAGNOSIS: LEFT BREAST CA SURGERY TODAY @1300INJ FOR IDENT OF SENTINEL NODE - 05/12/2012 [facility] RESULT: INDICATION: Left breast cancer.IMPRESSION: 900 mCi of technetium 99m sulfur colloid was injectedinto the periareolar region for sentinel node evaluation. Noimages were obtained.Dictated on work station # [id number] BY: ALAN THAKKAR M.D., RADIOLOGISTELECTRONICALLY SIGNED BY: ALAN THAKKAR M.D., RADIOLOGISTD May 12 2012 10:45AT PH : May 12 2012 12:35PS May 12 2012 1:04P Radiology Report from [id number] on 05/14/2013 13:26:00 Final ReportADMITTING DIAGNOSIS: DJD LEFT KNEE TOTAL KNEEKNEE ONE OR 2 VIEWS LT - 05/14/2013 [facility] RESULT: INDICATION: Left total knee.EXAMINATION: Two views of left knee 05/14/2013 at 9:21 a.m.FINDINGS: All three components in good alignment. There is aug[place] in place. No abnormal foreign body.IMPRESSION: Successful left knee replacement.Dictated on workstation # [id number] BY: BERHANE WARREN M.D., RADIOLOGISTELECTRONICALLY SIGNED BY: BERHANE WARREN M.D., RADIOLOGISTD May 14 2013 9:48AT KB : May 14 2013 1:24PS May 14 2013 1:24P Radiology Report from [id number] on 07/04/2017 16:43:00 Reason For ExamREPORT#[id number] - MG MAMMOGRAM DIAGNOSTIC RT W CADUNILATERAL RIGHT DIGITAL DIAGNOSTIC MAMMOGRAM TOMOSYNTHESIS WITH CAD: 2016Left mastectomy. PT HAS PERSONAL HX OF BREAST CANCER.Comparison is made to exams dated: 07/05/2016 mammogram, 11/12/2015 mammogram, 05/14/2015 mammogram, mammogram, 02/08/2014 mammogram, and 01/22/2013 mammogram - [facility].There are scattered fibroglandular elements in the right breast.3-D tomographic images obtained and reviewed. Current study was also evaluated with a Computer Aided Detection (CAD) system.No significant masses, calcifications, or other findings are seen in the breast.There has been no significant interval change.IMPRESSION: NEGATIVEThere is no mammographic evidence of malignancy. A follow-up mammogram in 12 months is recommended.The patient will receive results of this exam by mail.Denise Palmer/jose:07/04/2017 13:19: 10letter sent: Normal ExamMammogram BI-RADS: 1 NegativeSignature Line FINAL DICTATED BY: DENISE QUICK MDDICTATED DT/TM: 07/04/2017 1:16 PMSIGNED BY: DENISE QUICK MDSIGNED (ELECTRONIC SIGNATURE): 07/04/2017 1: 19 PMTRANSCRIBED BY: RYANTECHNOLOGIST: BINH BOOTH Radiology Report from [id number] on 07/25/2018 11:49:00 Reason For ExamDEXAREPORTINDICATION: Postmenopausal female.COMPARISON: 2015.FINDINGS:AP Spine L1-L4: [BMD (g/cm2):1.090] [T-Score:0.4] [Z-Score:2.2][ BMD Previous:1.058] [BMD % Change:3.1%*]LT Hip Neck: [BMD (g/cm2): 0.765] [T-Score:-0.8] [Z-Score:0.8]LT Hip Total: [BMD (g/cm2):0.966] [T -Score:0.2] [Z-Score:1.5][BMD Previous:0.952] BMD % Change:[1.4%]RT Hip Neck: [BMD (g/cm2):0.722] [T-Score:-1.1] [Z-Score:0.4]RT Hip Total: [BMD (g/cm2):0.892] [T-score:-0.4] [Z-Score:0.9][BMD Previous:0.944] [BMD % Change :-5.5%*]*Indicates significant change from prior examination based on 95% confidencelevel.World Health Organization criteria for BMD interpretation classify patients asNormal (T-score at or above -1.0), Osteopenic (T-score between -1.0 and -2.5) orOsteoporotic (T-score at or below -2.5).LIMITATIONS AND MODIFICATION: Interval increase in bone density in the lumbarspine may be due to degenerative change.FRACTURE RISK (FRAX SCORE):The ten year probability of (%):Major Osteoporotic Fracture: 7.9%Hip Fracture: 0.6%IMPRESSION:1. Osteopenia (Low bone mass).2. Bone mineral density in the right hip has decreased by a statisticallysignificant amount, as detailed above. Interval increase in the lumbar spinebone density may be due to degenerative change.3. See below National Osteoporosis Foundation guidelines on when to potentiallyinitiate pharmacologic therapy.Based on the National Osteoporosis Foundation Guidelines, pharmacologictreatment should be initiated in any of the following, unless clinicalconditions suggest otherwise:* Any patient with prior fragility fracture of the hip or vertebrae. A spinefracture indicates 5X risk for subsequent spine fracture and 2X risk forsubsequent hip fracture.* Osteoporosis (T-score <-2.5).* Postmenopausal women and men age 50 and older with low bone mass/osteopenia(T-score between -1.0 and -2.5) by DXA and 10-year major osteoporotic fracturegreater than 20% or a 10-year probability of hip fracture greater than 3%. Thesefracture risks are supplied above in the FRAX score, if applicable.* Clinician judgment and/or patient preferences may indicate treatment forpeople with 10-year fracture probabilities above or below these levels.Dictated on workstation:[id number] Line FINAL DICTATED BY: CHILO PAUL MDDICTATED DT/TM: 07/13/2018 4:00 PMSIGNED BY: CHILO PAUL MDSIGNED (ELECTRONIC SIGNATURE): 07/13/2018 5:14 PMTECHNOLOGIST: JIMENA COE Radiology Report from [id number] on 07/25/2018 15:33:00 Reason For ExamBreast cancer , personal history ofREPORT#[id number] - MG MAMMOGRAM DIAGNOSTIC RT W CADUNILATERAL RIGHT DIGITAL DIAGNOSTIC MAMMOGRAM TOMOSYNTHESIS WITH CAD: 07/13/2018Personal hx breast CA. Hx Left mastectomy.Comparison is made to exams dated: 07/04/2017 mammogram, 07/05/2016 mammogram, 11/12/2015 mammogram, 05/14/2015 mammogram, and 05/08/2015 mammogram - [facility].There are scattered fibroglandular elements in the right breast.3-D tomographic images obtained and reviewed. Current study was also evaluated with a Computer Aided Detection (CAD) system.No significant masses, calcifications, or other findings are seen in the breast.There has been no significant interval change.IMPRESSION: NEGATIVEThere is no mammographic evidence of malignancy. A 1 year screening mammogram is recommended.The patient will receive results of this exam by mail.Denise Palmer/jose:2017 15:07:19copy to: Ruth Hayden M.D., [facility] Teacher's Circleletter sent: Normal ExamMammogram BI-RADS: 1 NegativeSignature Line FINAL DICTATED BY: DENISE QUICK MDDICTATED DT/TM: 07/13/2018 2:19 PMSIGNED BY: DENISE QUICK MDSIGNED (ELECTRONIC SIGNATURE): 07/13/2018 3: 07 PMTRANSCRIBED BY: RYANTECHNOLOGIST: ERIC BAUMAN RT(M) Encounters ACCT No. Visit Date/Time Discharge Status Pt. Type Provider Facility Loc./Unit Complaint [id number] 05/14/2013 05:05:00 05/17/2013 13:49:00 DIS Inpatient Denise Telles MD [facility] on [address] F6SE [id number] 05/09/2013 14:05:00 05/09/2013 23:59:59 CLS Outpatient Denise Telles MD [facility] on [address] [id number] 05/12/2012 07:27:00 05/13/2012 11:13:00 DIS Outpatient Ruth Hayden MD [facility] on [facility] [place] Val[place] [id number] 07/13/2018 14:11:00 07/13/2018 23:59:00 DIS Outpatient Eliecer Nelson [facility] Mur Rad SCREENING [id number] 07/13/2018 13:41:00 07/13/2018 23:59:00 DIS Outpatient Eliecer Nelson S [facility] Mur Rad DEXA [id number] 07/04/2017 12:37:00 07/04/2017 23:59:00 DIS Outpatient Eliecer Nelson [facility] Mur Rad HX OF BREAST CANCER [id number] 07/12/2016 15:06:00 07/12/2016 23:59:00 DIS Outpatient Ruth Hayden [facility] FC Surg TCPA 1 yr following rt dx mammo on same day [id number] 06/02/2015 12:54:00 06/02/2015 23:59:00 DIS Outpatient Ruth Hayden [facility] FC Surg one year visit [id number] 07/22/2014 17:05:00 07/22/2014 23:59:00 DIS Outpatient Hetal Hall [facility] W21 IC E COUGH COLD X3 WEEKS [id number] 11/08/2013 15:51:00 11/08/2013 23:59:59 CLS Outpatient
--- OUTSIDE RECORDS SUMMARY | 2018-12-28 14:53 | XMS REPORT | CCD ---
Author Author Ama Sanchez MD, [facility] Address [address] [place] [address] Phone Care Team Providers Care Hoeing Row Boss Name Role Phone PP Unavailable CCM Unavailable Summary Purpose Interface Exchange Insurance Providers Payer name Policy type / Coverage type Covered libertarian ID Effective Begin Date Effective End Date [facility] [id number] Unknown Unknown Family history Mother Diagnosis Age At Onset Breast cancer Unknown Osteoporosis Unknown Heart Attack Unknown Arthritis Unknown Father Diagnosis Age At Onset Heart Attack Unknown Diabetes mellitus Type 2 Unknown Hyperlipidemia Unknown Sister Diagnosis Age At Onset Depression Unknown Breast cancer Unknown Social History Social History Element Codes Description Effective Dates Marital status Unknown 01/20/[address]: 607896661 Never smoker 01/20/2017 Alcohol history Unknown occasionally [...] Fill Instructions prednisone 20 mg tablet RxNorm: 588075 2 Tablet(s) PO daily 01/201807/24/2018 Active Keflex 500 mg capsule RxNorm: 911129 1 Capsule(s) PO TID 201605/22/2017 Inactive Zithromax 250 mg tablet RxNorm: 139026 1 Tablet(s) PO daily 03/2017 No Stop Date Active clindamycin 150 mg capsule RxNorm: 303668 1 Capsule(s) PO TID 08/23/2016 08/29/2016 Inactive Arimidex 1 mg tablet RxNorm: 528292 1 Tablet(s) PO daily No Start Date Active cranberry 1,000 mg capsule RxNorm: 205245 1 Capsule(s) PO daily No Start Date Active Vitamin D2 1,000 unit capsule RxNorm: 591582 1 Capsule(s) PO daily No Start Date Active calcium 100 mg capsule RxNorm: 1 Capsule(s) PO daily No Start Date Active Mikki 180 mg tablet RxNorm: 084622 1 Tablet(s) PO daily No Start Date Active Centrum Silver Ultra Women's oral RxNorm: 69137 oral No Start Date Active Medication Administered [...] Item Item Code Result Date Culture Urine [id number] URINE CULTURE SEE NOTES 05/19/2017 Culture Urine [id number] Continued Results 05/19/2017 Urine Culture Ucult Complete [...] Codes Date URINALYSIS NONAUTO W/O SCOPE CPT-4: 80452 05/16/2017 Vital Signs Date Vital 07/20/2018 Blood Pressure 1: 146/84 Code : 8480-6 BMI: 35.9 Code : 06788-2 Heart Rate 1 : 94 bpm Height: 5'6" SpO2: 98% Weight: 226 lbs 01/20/2017 Blood Pressure 1: 144/88 Code : 8480-6 BMI: 35.0 Code : 18031-4 Heart Rate 1 : 76 bpm Height: 5'6" SpO2: 96% Weight: 220 lbs 08/23/2016 Blood Pressure 1: 140/66 Code : 8480-6 BMI: 35.9 Code : 30955-2 Heart Rate 1 : 68 bpm Height: [...] data Encounters Encounter Performer Location Codes Date 99233 EST. PATIENT, LEVEL III Diagnosis: Pain in right knee[ICD10: M25.561] [facility] CPT-4: 69481 07/20/2018 81677 EST. PATIENT, LEVEL IV Diagnosis: Other allergic rhinitis[ICD10: J30.89] Diagnosis: Other acute sinusitis[ICD10: J01.80] [facility] CPT-4: 98330 01/20/2017 (30699) OFFICE VISIT, NEW - LEVEL 3 Diagnosis: Allergic rhinitis due to pollen[ICD10: J30.1] Diagnosis: Other cysts of oral region, not elsewhere classified[ICD10: K09.8] Diagnosis: Encounter for general adult medical examination with abnormal findings[ICD10: Z00.01] [facility] CPT-4: 32390 08/23/2016 Plan of Care Planned Activity Notes Codes Status Date Visit Plan: Right knee pain - edema - The pt is to use prn antiinflammatories to manage acute pain. The patient is to call the office if the pain is worsening or does not improve. 07/20/2018 Patient Education: Patient Medication Summary Completed 07/20/2018 Care Plan: X-RAY EXAM OF KNEE 3 LOINC : 13141-2 Pending 07/20/2018 Patient Education: Patient Medication Summary [...] show improvement. 01/20/2017 Appointment: Jodie Mayers WPtel: [facility] (15 min) Moderate 01/20/2017 Patient Education: Patient Medication Summary Completed 01/20/2017 Patient Education: Obesity Completed 01/20/2017 Visit Plan: Twhfdrmwc-peqzjcszit-boxsfd mikki daily Cyst left buccal mucosa-start abx-recommend dental appt to r/o tooth abscess-plan for imaging or referral if cyst does not resolve with round of oral abx History of breast cancer-on arimidex-mammograms in June Due for fasting labs-order sent to [facility] Recommend colonoscopy 08/23/2016 Appointment: [facility]el[facility] [facility] [place] [address] New Patient 08/23/2016 Patient Education: Patient Medication Summary Completed 08/23/2016 Patient Education: Obesity Completed 08/23/2016 Care Plan: Comp Metabolic patient will come fasting Cancelled 08/23/2016 Care Plan: Cbc With Differential Cancelled 08/23/2016 Care Plan: Tsh Cancelled 08/23/2016 Care Plan: Lipid Cancelled 08/23/2016 Instructions Comment Fasting labs . Qxxdjxfwr-zimzkojibw-xesvvf mikki daily Cyst left buccal mucosa-start abx-recommend dental appt to r/o tooth abscess- plan for imaging or referral if cyst does not resolve with round of oral abx History of breast cancer-on arimidex-mammograms in June Due for fasting labs-order sent to [facility] Recommend colonoscopy steroid for a few [...]
--- OUTSIDE RECORDS SUMMARY | 2018-12-28 14:53 | XMS REPORT | Continuity of Care Document ---
Author Author Dez Telles MD [facility] Address [address] [place] [address] Phone Care Team Providers Care Motor Vehicle Light Assembler Name Role Phone Jigna Hodge PP Unavailable Payers Payer name Insurance type Covered libertarian ID Authorization(s) Unknown Problems Condition Effective Dates (start - stop) Clinical Status Follow-up examination, following other surgery - *Chronic Depressive disorder, not elsewhere classified - *Chronic Insomnia, unspecified - *Controlled Premenopausal menorrhagia - Mild Other and unspecified hyperlipidemia - *Chronic Follow-up examination, following other surgery - *Acute Malignant Neoplasm, Breast - *Acute Follow-up examination, following other surgery - *Acute Follow-up examination, following other surgery - *Acute Follow-up examination, following other surgery - *Chronic 311 - DEPRESSIVE DISORDER NEC - Malignant Neoplasm, Breast - *Acute Osteoarthrosis, generalized, involving unspecified site - *Poor control Acute suppurative otitis media without spontaneous rupture of eardrum 2011 - Acute Breast cancer - *Stable Malignant Neoplasm, Breast - *Acute Follow-up examination, following other surgery - *Acute Personal history of breast cancer - *Acute Family history of malignant neoplasm of breast - *Acute Axillary lump - *Acute Family History Family Member Diagnosis Age At Onset Status Father (Unknown) Valvular ht dz Yes Mother (Unknown) Cancer -breast Yes Sister (Unknown) Alive and well (Unknown) Paternal aunt (Unknown) Cancer -breast Yes Father (Unknown) Premature CAD Yes Brother (Unknown) CVA (Stroke) Yes Father (Unknown) CAD Yes Mother (Unknown) CAD Yes Brother (Unknown) Alive and well (Unknown) Sister (Unknown) Cancer -breast Yes Father (Unknown) Diabetes Yes Social History Social History Element Description Quantity alcohol wine 1 drink Allergies, Adverse Reactions, Alerts Substance Reaction Severity Status Unknown Medications Medication Instructions Dosage Effective Dates (start - stop) Status cranberry 400 mg capsule 1 tablet everyday - Active take 2 by Oral route every day 0 - Active Cindy 180 mg tablet take 1 tablet (180MG) by ORAL route every day 180 MG - Active VITAMIN D (unknown strength) - Active anastrozole 1 mg tablet take 1 tablet (1MG) by oral route every day 1 MG - Active Keflex 500 mg capsule Take 4 capsules one hour prior to dental procedure - Active Immunizations Vaccine Date Status Comments Tdap completed Results Test Name Date and Time Measure Units Reference Range Abnormal Flag Comments Unknown Vital Signs Date / Time: Height Weight Pulse Rate Blood Pressure Temperature /15:51:00 66.50 in 210.00 lbs Procedures Procedure Date Unknown Encounters Encounter Location Date Patient Visit [facility] Ortho Patient Visit [facility] Patient Visit [facility] Breast Surg Patient Visit [facility] Ortho Patient Visit [facility] Ortho Patient Visit [facility] Ortho Patient Visit Conversion Patient Visit [facility] Breast [facility]urg Patient Visit [facility] W21 Patient Visit [facility] W21 Patient Visit [facility] Breast [facility]urg Patient Visit [facility] Breast Surg Advance Directives Directive Effective Date Unknown
--- NOTE | 2018-12-28 16:11 | ED General ---
General Chief Complaint: Allergic Reaction Stated Complaint: RASH;SOA;SHAKING Nursing Triage Note: PT STATES SHE TOOK AMOXICILLIN ABOUT 1335 FOR A DENTAL PROCEDURE AND GOT A RASH , ITCHY AND SHAKEY. Nursing Sepsis Screen: No Definite Risk Source of Information: Patient Exam Limitations: No Limitations History of Present Illness Date Seen by Provider: December 28, 2018 Time Seen by Provider: 14:50 Initial Comments Here with report of allergic reaction including hives and skin redness. She apparently took amoxicillin at about 1330 for pre-dental procedure need and then shortly later started getting the skin redness. She apparently had a reaction similar last year when she took amoxicillin and hydrocodone. She thought the hydrocodone was the problem. She believes now that it was actually the amoxicillin. Family member gave her 50 mg of Benadryl by mouth and they are reporting that things are actually a little better now. Denies breathing problems or vomiting. Denies swelling in her throat or tongue. Timing/Duration: 1 Hour Severity: Moderate Modifying Factors: worse with Medication Associated Systoms: No Cough, No Fever/Chills, No Nausea/Vomiting, No Shortness of Air, No Weakness Allergies and Home Medications Allergies Coded Allergies: amoxicillin (Verified Allergy, Unknown, 12/28/18) Home Medications Prednisone 20 Mg Tab, 40 MG PO DAILY Prescribed by: MOLINA PALOMARES on 12/28/18 1705 Patient Home Medication List Home Medication List Reviewed: Yes Review of Systems Review of Systems Constitutional: No chills, No fever EENTM: no symptoms reported Respiratory: No short of breath, No wheezing Cardiovascular: no symptoms reported Gastrointestinal: No abdominal pain, No nausea, No vomiting Musculoskeletal: no symptoms reported Skin: see HPI, change in color, rash Psychiatric/Neurological: No Symptoms Reported Past Pzppanf-Uxaedi-Agiehs Hx Past Med/Social Hx: Reviewed Nursing Past Med/Soc Hx Patient Social History Alcohol Use: Rarely Uses Alcohol Beverage of Choice: Whiskey, Wine Recreational Drug Use: No Smoking Status: Never a Smoker Recent Foreign Travel: No Contact w/Someone Who Travel: No Recent Infectious Disease Expo: No Recent Hopitalizations: No Seasonal Allergies Seasonal Allergies: Yes Past Medical History Surgeries: Yes Breast, Orthopedic Respiratory: No Cardiac: No Neurological: No Genitourinary: No Gastrointestinal: No Musculoskeletal: No Endocrine: No Cancer: Yes (LT BREAST MASTECTOMY) Breast Psychosocial: No Integumentary: No Family Medical History Reviewed Nursing Family Hx Physical Exam Vital Signs Vital Signs - First Documented 12/28/18 14:51 Temp 96.7 Pulse 99 Resp 22 B/P (MAP) 194/95 (128) Pulse Ox 96 O2 Delivery Room Air Capillary Refill : Less Than 3 Seconds Height, Weight, BMI Height: 5'7.00" Weight: 210lbs. oz. 95.486100jr; BMI Method:Stated General Appearance: No Apparent Distress, WD/WN HEENT: PERRL/EOMI, Pharynx Normal Neck: Non Tender, Supple Respiratory: Lungs Clear, Normal Breath Sounds Cardiovascular: Regular Rate, Rhythm, No Murmur Gastrointestinal: Non Tender, Soft Extremity: Normal Range of Motion, Non Tender Neurologic/Psychiatric: Alert, Oriented x3 Skin: Warm/Dry, Rash (hives and erythema noted to upper and lower extremities as well as torso.) Progress/Results/Core Measures Suspected Sepsis Recent Fever Within 48 Hours: No Infection Criteria Present: None New/Unexplained Altered Menta: No Sepsis Screen: No Definite Risk SIRS Temperature:96.7 Pulse: 99 Respiratory Rate: 22 Blood Pressure 194 /95 Mean: 128 Results/Orders My Orders Orders - MOLINA PALOMARES MD Ed Iv/Invasive Line Start (12/28/18 14:53) Ns Iv 500 Ml (Sodium Chloride 0.9%) (12/28/18 14:53) Methylprednisolone Sod Succ (Solu-Medrol (12/28/18 14:53) Famotidine Injection (Pepcid Injection) (12/28/18 14:53) Medications Given in ED Current Medications Medications Dose Ordered Sig/Gabriel Route Start Time Stop Time Status Last Admin Dose Admin Sodium Chloride 500 ml @ 0 mls/hr Q0M ONCE IV 12/28/18 14:53 12/28/18 14:55 DC 12/28/18 15:08 500 MLS/HR Vital Signs/I&O 12/28/18 14:51 Temp 96.7 Pulse 99 Resp 22 B/P (MAP) 194/95 (128) Pulse Ox 96 O2 Delivery Room Air Capillary Refill : Less Than 3 Seconds Blood Pressure Mean: 128 Progress Note : Progress Note Seen and evaluated. IV, normal saline 500 mL bolus, Pepcid 20 mg IV and Solu- Medrol 125 mg IV ordered. Monitor patient. 1700: Patient has complete resolution of hives. We will continue outpatient prednisone for a total of 3 days including today. She will pick that up at the pharmacy. Patient had does have elevated blood pressure in the 150s to 160s over 70s to 100 range. I did discuss with her about following up with her doctor regarding blood pressure to see if this is sustained and will need treatment. She will follow-up with Dr. Thurston. I will send a copy of the chart to her. Discharged home with return precautions. Patient verbalize understanding instructions and agreement with plan. Departure Impression Primary Impression: Allergic reaction caused by a drug Qualified Codes: T78.40XA - Allergy, unspecified, initial encounter Additional Impression: High blood pressure Qualified Codes: I10 - Essential (primary) hypertension Disposition: HOME, SELF-CARE Condition: Improved Departure-Patient Inst. Decision time for Depature: 17:05 Referrals: JACEY THURSTON MD (PCP) Primary Care Physician Patient Instructions: Anaphylaxis (DC), High Blood Pressure (DC) Add. Discharge Instructions: All discharge instructions reviewed with patient and/or family. Voiced understanding. Start the prednisone tonight. Take it for 3 days. You may take [id number] Pepcid or Zantac or the generic once or twice a day for the next 3 days as needed for itching. You may also take Benadryl or the generic diphenhydramine 25 mg every 4-6 hours as needed for itching. Return for breathing problems, persistent hives, shortness of breath or wheezing, swelling of her tongue or throat or other concerns as needed. You do need to follow-up with Dr. Thurston regarding her blood pressure which was high today. You may record your blood pressures daily and take that log to Dr. Thurston to assist in managing her blood pressure. Scripts Prednisone (Prednisone) 20 Mg Tab 40 MG PO DAILY, #6 TAB 0 Refills Prov: MOLINA PALOMARES MD 12/28/18 Copy Copies To 1: JACEY THURSTON MD, TIMOTHY D MD December 28, 2018 16:11
[2018-12-28] MEDS ORDERED: PRD20T PO (17:05)
[2018-12-28 17:22] VITALS: BP 139/86
== END 2018-12-28 17:22 | disposition home or self-care (01) ==
LOC: EDUNIT# 14:46 → ER 14:48
DX: R03.0 Elevated blood-pressure reading, without diagnosis of hypertension (principal); T36.0X5A Adverse effect of penicillins, initial encounter; Z88.0 Allergy status to penicillin; Z79.52 Long term (current) use of systemic steroids; Z98.890 Other specified postprocedural states; Z85.3 Personal history of malignant neoplasm of breast; Z90.12 Acquired absence of left breast and nipple